=== PATIENT | male | born 1995 | race Caucasian/White ===

== ENCOUNTER 2017-05-15 19:29 | Emergency (ER) | payer BC ==
[~2017-05-15] VITALS: Ht 190.5 cm; Wt 78.5 kg
[~2017-05-15 19:29] MED LIST: ELIMITE60 G1 TP; ELIMITE60 GM TOP; KEFLEX PO; NAPROXEN PO; NO MEDICATIONS; PHENERGAN25 MG PO; PRILOSEC PO; VOLTAREN75 MG PO
[2017-05-15 20:03] LABS: URINE SOURCE CLEAN CATCH
[2017-05-15 20:14] LABS: MICRO INDICATED? NO; URINE APPEARANCE HAZY; URINE BILIRUBIN NEG (NEG); URINE BLOOD NEG (NEG); URINE COLOR YELLOW; URINE GLUCOSE NEG (NORM); URINE KETONE NEG (NEG); URINE LEUKOCYTE ESTERASE NEG (NEG); URINE NITRATE NEG (NEG); URINE PROTEIN NEG (NEG); URINE SPECIFIC GRAVITY 1.015 (1.003-1.035); URINE UROBILINOGEN 0.2 MG/DL (NORM)
[2017-05-21 12:52] LABS: CHLAMYDIA TRACH Not Detected (Not Detected); N GONOR Not Detected (Not Detected)
== END 2017-05-15 20:35 | disposition home or self-care (01) ==
LOC: SED 19:29
PROVIDERS: Nurse Practitioner; Physician Assistant
DX: R36.9 Urethral discharge, unspecified (principal); F17.200 Nicotine dependence, unspecified, uncomplicated
CPT/HCPCS: 81003; 87491; 87591; 96372; 99283; J0696

== ENCOUNTER 2017-05-22 13:51 | Emergency (ER) | payer SELFPAY ==
[~2017-05-22] VITALS: Ht 190.5 cm; Wt 81.6 kg
== END 2017-05-22 15:00 | disposition home or self-care (01) ==
LOC: CFTX 13:51 → CED 13:51 → CFTX 14:42
DX: B86 Scabies (principal); F17.200 Nicotine dependence, unspecified, uncomplicated
CPT/HCPCS: 99282